=== PATIENT | male | born 1965 | race Caucasian/White ===

== ENCOUNTER 2018-09-14 10:15 | Emergency (ER) | payer OTHER ==
[~2018-09-14] VITALS: Ht 180.3 cm; Wt 86.0 kg
[2018-09-14] MEDS ORDERED: ONDANSETRON HCL 4MG/2ML INJ IV STA (10:40)
[2018-09-14] MEDS ORDERED: SODIUM CHLORIDE 0.9% 1,000 ML IV ONE (10:40)
[2018-09-14 10:56] LABS: BASOPHILS % 0.1 % (0.0-2.0); EOSINOPHILS % 0.1 % (0.0-5.0); HEMATOCRIT. 46.7 % (42.0-52.0); HEMOGLOBIN. 15.2 g/dL (14.0-18.0); LYMPHOCYTES % 8.6 % (20.0-50.0); MEAN CORPUSCULAR HEMOGLOBIN 29.8 pg (28.0-32.0); MEAN CORPUSCULAR VOLUME 91.5 fL (80.0-94.0); MEAN PLATELET VOLUME 10.6 fl (7.4-10.4); MONOCYTES % 3.5 % (2.0-8.0); NEUTROPHILS % 87.7 % (40.0-76.0); PLATELET 169 x1000/uL (130-400); RED CELL DISTRIBUTION WIDTH 13.8 % (11.6-14.6)
[2018-09-14 11:03] LABS: CHLORIDE 110 mEq/L (98-107)
[2018-09-14 12:06] VITALS: BP 132/82
== END 2018-09-14 12:30 | disposition home or self-care (01) ==
LOC: ER 10:15
DX: R42 Dizziness and giddiness (principal); R11.2 Nausea with vomiting, unspecified; M25.521 Pain in right elbow
CPT/HCPCS: 36415; 80053; 85025; 93005; 96374; 99284; J2405; J7030